=== PATIENT | female | born 1950 | race Caucasian/White ===

== ENCOUNTER 2019-07-13 10:01 | Inpatient (IN) | payer MEDICARE ==
[~2019-07-13] VITALS: Ht 165.1 cm; Wt 64.9 kg
[2019-07-13] MEDS ORDERED: SODIUM CHLORIDE 0.9% 1,000 ML IV ONE (10:26)
[2019-07-13] MEDS ORDERED: ONDANSETRON HCL 4MG/2ML INJ IV STA (10:26)
[2019-07-13 11:51] LABS: HEMATOCRIT. 39.9 % (36.0-48.0); HEMOGLOBIN. 13.8 g/dL (12.0-16.0); MEAN CORPUSCULAR HEMOGLOBIN 32.6 pg (28.0-32.0); MEAN CORPUSCULAR VOLUME 94.7 fL (81.0-99.0); MEAN PLATELET VOLUME 7.5 fl (7.4-10.4); PLATELET 446 x1000/uL (130-400); RED BLOOD CELL COUNT 4.22 mill/uL (4.2-5.4); RED CELL DISTRIBUTION WIDTH 14.8 % (11.6-14.6)
[2019-07-13 11:53] LABS: CHLORIDE 100 mEq/L (98-107)
[2019-07-13 12:01] LABS: PROTHROMBIN TIME 10.5 sec (9.6-11.0)
[2019-07-13 12:33] LABS: PLATELET ESTIMATE INCREASED
[2019-07-13] MEDS ORDERED: ONDANSETRON 4MG ODT PO ONE (12:45)
[2019-07-13] MEDS ORDERED: ERYTHROMYCIN ETHYLSUCCINATE 200MG/5ML 100ML PO ONE (13:00)
[2019-07-13] MEDS ORDERED: ERYTHROMYCIN 250MG TABLET PO NR (13:15)
[2019-07-13] MEDS ORDERED: DOCUSATE SODIUM 100MG CAPSULE PO PRN (13:30)
[2019-07-13] MEDS ORDERED: HYDRALAZINE 20MG/ML VIAL IV PRN (13:30)
[2019-07-13] MEDS ORDERED: ONDANSETRON HCL 4MG/2ML INJ IV PRN (13:30)
[2019-07-13] MEDS ORDERED: MAGNESIUM/ALUMINUM HYDROXIDE/SIMETHICONE 30ML UDC PO PRN (13:30)
[2019-07-13] MEDS ORDERED: HYDROCODONE/ACETAMINOPHEN 10/325MG TABLET PO PRN (13:30)
[2019-07-13] MEDS ORDERED: LORAZEPAM 2MG/ML CPJ IV PRN (13:30)
[2019-07-13] MEDS ORDERED: IPRATROPIUM/ALBUTEROL 0.5-3(2.5)MG/3ML NEB HHN PRN (13:30)
[2019-07-13] MEDS ORDERED: NA PHOS,M-B/NA PHOS,DI-BA ENEMA 118ML PR PRN (13:30)
[2019-07-13] MEDS ORDERED: ENOXAPARIN 40MG/0.4ML SYR SUBCUT SCH ×2 (13:30→16:00)
[2019-07-13] MEDS ORDERED: CLONIDINE 0.1MG TABLET PO PRN (13:30)
[2019-07-13] MEDS ORDERED: GUAIFENESIN 200MG/10ML SUGAR FREE UDC PO PRN (13:30)
[2019-07-13] MEDS ORDERED: MORPHINE SULFATE 2 MG/ML CPJ (NOT FOR IM USE) IV PRN (13:30)
[2019-07-13] MEDS ORDERED: DIPHENHYDRAMINE 50MG/ML VIAL IV PRN (13:30)
[2019-07-13] MEDS: DEXT 5%/0.45% NACL 1000ML 1,000 ML IV SCH ×2 (14:48→19:04)
[2019-07-13 15:50] VITALS: BP 136/57
[2019-07-13 16:00] VITALS: BP 136/57
[2019-07-13] MEDS ORDERED: MERC50TA MT (17:03)
[2019-07-13] MEDS ORDERED: ZOLP10TA2 MT (17:08)
[2019-07-13] MEDS ORDERED: ONDA4TAB5 MT (17:19)
[2019-07-13] MEDS ORDERED: CALC-1042 PO (17:19)
[2019-07-13] MEDS ORDERED: AMLO5TAB4 MT (17:19)
[2019-07-13] MEDS ORDERED: LISI40TA4 MT (17:19)
[2019-07-13] MEDS ORDERED: LANS30CA52 MT (17:19)
[2019-07-13] MEDS ORDERED: LEVO100T MT (17:19)
[2019-07-13] MEDS ORDERED: ESTRPATC TD (17:19)
[2019-07-13] MEDS ORDERED: VITA0.4T17 MT (17:19)
[2019-07-13] MEDS ORDERED: VALE150C PO (17:19)
[2019-07-13] MEDS ORDERED: ERYT250C68 MT (17:19)
[2019-07-13] MEDS ORDERED: MAGN400C MT (17:19)
[2019-07-13 18:15] LABS: CREATINE KINASE 144 IU/L (26-192); CREATINE KINASE MB FRACTION 1.8 ng/mL (0.5-3.6)
[2019-07-13] MEDS ORDERED: ZOLPIDEM TARTRATE 5MG TABLET PO PRN (18:45)
[2019-07-13] MEDS: OMEPRAZOLE 20MG CAPSULE EXTENDED RELEASE PO SCH ×2 (19:04→21:00)
[2019-07-13] MEDS: SODIUM CHLORIDE 0.9% INJ 3ML FLUSH IVF SCH ×2 (19:04→22:02)
[2019-07-13 20:00] VITALS: BP 143/59
[2019-07-13] MEDS ORDERED: MERCAPTOPURINE 50MG TABLET PO SCH (21:00)
[2019-07-13] MEDS: ACETAMINOPHEN 325MG TABLET PO PRN (22:02)
[2019-07-14 00:09] LABS: CREATINE KINASE 161 IU/L (26-192)
[2019-07-14 00:10] LABS: CREATINE KINASE MB FRACTION 1.7 ng/mL (0.5-3.6)
[2019-07-14 04:00] VITALS: BP 119/45
[2019-07-14] MEDS: ACETAMINOPHEN 325MG TABLET PO PRN (05:45)
[2019-07-14] MEDS: SODIUM CHLORIDE 0.9% INJ 3ML FLUSH IVF SCH (05:45)
[2019-07-14] MEDS: OMEPRAZOLE 20MG CAPSULE EXTENDED RELEASE PO SCH (06:26)
[2019-07-14 07:01] LABS: HEMATOCRIT. 34.3 % (36.0-48.0); HEMOGLOBIN. 11.8 g/dL (12.0-16.0); MEAN CORPUSCULAR HEMOGLOBIN 32.7 pg (28.0-32.0); MEAN CORPUSCULAR VOLUME 94.9 fL (81.0-99.0); MEAN PLATELET VOLUME 7.9 fl (7.4-10.4); PLATELET 375 x1000/uL (130-400); RED BLOOD CELL COUNT 3.62 mill/uL (4.2-5.4); RED CELL DISTRIBUTION WIDTH 14.8 % (11.6-14.6)
[2019-07-14 07:36] LABS: CHLORIDE 107 mEq/L (98-107)
[2019-07-14 08:00] VITALS: BP 125/49
[2019-07-14] MEDS ORDERED: POTASSIUM CHLORIDE 20MEQ TABLET SR PO SCH (09:15)
[2019-07-14 11:21] VITALS: BP 125/49
[2019-07-14 12:00] VITALS: BP 157/61
[2019-07-14 17:32] LABS: PLATELET ESTIMATE NORMAL
== END 2019-07-14 13:28 | disposition home or self-care (01) | DRG 641 ==
LOC: ER 10:01 → 6WST 13:13 → ENRESERV 14:20
PROVIDERS: ADMIT Internal Medicine; ATTEND Internal Medicine
DX: E86.0 Dehydration (principal); K50.90 Crohn's disease, unspecified, without complications; E87.1 Hypo-osmolality and hyponatremia; D72.825 Bandemia; E03.9 Hypothyroidism, unspecified; I10 Essential (primary) hypertension; N20.0 Calculus of kidney; Z90.49 Acquired absence of other specified parts of digestive tract; Z90.710 Acquired absence of both cervix and uterus; Z93.3 Colostomy status; Z88.8 Allergy status to other drugs, medicaments and biological substances
CPT/HCPCS: 36415; 74176; 82550; 82553; 84484; 96361; 96374; 99285; J2060; J2405; J7030; Q0162

== ENCOUNTER 2021-06-10 16:55 | Inpatient (IN) | payer MEDICARE ==
[~2021-06-10] VITALS: Ht 165.1 cm; Wt 88.5 kg
[~2021-06-10 16:55] MED LIST: AMLO5TAB4 MT; CALC-1042 PO; ESTRPATC TD; LANS30CA52 MT; LEVO100T MT; LISI40TA13 MT; MAGN400C MT; MERC50TA MT; ONDA4TAB5 MT; VALE150C PO; VITA0.4T17 MT; ZOLP10TA2 MT; [UNRECOGNIZED DRUG - CODE] MT
[2021-06-10] MEDS ORDERED: ONDANSETRON HCL 4MG/2ML INJ IV STA (17:04)
[2021-06-10] MEDS ORDERED: MORPHINE SULFATE 4 MG/ML CPJ (NOT FOR IM USE) IV STA (17:19)
[2021-06-10] MEDS ORDERED: SODIUM CHLORIDE 0.9% 1,000 ML IV ONE (17:45)
[2021-06-10 17:51] LABS: HEMATOCRIT. 39.4 % (36.0-48.0); HEMOGLOBIN. 13.5 g/dL (12.0-16.0); MEAN CORPUSCULAR VOLUME 90.2 fL (81.0-99.0); MEAN PLATELET VOLUME 7.8 fl (7.4-10.4); PLATELET 716 x1000/uL (130-400); RED BLOOD CELL COUNT 4.37 mill/uL (4.2-5.4); RED CELL DISTRIBUTION WIDTH 15.6 % (11.6-14.6)
[2021-06-10 17:56] LABS: CHLORIDE 101 mEq/L (98-107)
[2021-06-10 18:18] LABS: PLATELET ESTIMATE INCREASED
[2021-06-10 18:28] LABS: PARTIAL THROMBOPLASTIN TIME 27.5 sec (23.4-31.0); PROTHROMBIN TIME 10.8 sec (9.6-11.0)
[2021-06-10] MEDS ORDERED: CEFTRIAXONE 1 G PREMIX 50 ML IV ONE (21:45)
[2021-06-10] MEDS ORDERED: ONDANSETRON HCL 4MG/2ML INJ IV ONE (22:00)
[2021-06-11] MEDS: MORPHINE SULFATE 2 MG/ML CPJ (NOT FOR IM USE) IV PRN ×3 (06:11→16:16)
[2021-06-11] MEDS: ONDANSETRON HCL 4MG/2ML INJ IV PRN ×3 (06:11→15:02)
[2021-06-11 06:20] VITALS: BP 122/51
[2021-06-11 08:00] VITALS: BP 143/57
[2021-06-11 08:49] LABS: CLARITY URINE CLEAR (CLEAR); COLOR URINE DK YELLOW (YELLOW); KETONES URINE 1+ (NEGATIVE); LEUKOCYTE ESTERASE URINE 1+ (NEGATIVE); NITRITE URINE NEGATIVE (NEGATIVE); OCCULT BLOOD URINE NEGATIVE (NEGATIVE); PH URINE 5.5 (4.5-8.0); PROTEIN URINE 1+ (NEGATIVE); SPECIFIC GRAVITY URINE 1.022 (1.005-1.030); UROBILINOGEN URINE 0.2 E.U./dL (0.2-1.0)
[2021-06-11 12:00] VITALS: BP 155/59
[2021-06-11] MEDS: METHYLPREDNISOLONE SOD SUCC 40 MG/ML VIAL IV SCH ×2 (13:38→21:54)
[2021-06-11] MEDS: PIPERACILLIN/TAZOBACTAM 3.375 G in DEXTROSE 5% WATER 50 ML IV SCH ×2 (13:39→21:54)
[2021-06-11] MEDS: DEXT 5%/0.45% NACL 1000ML 1,000 ML IV SCH (13:39)
[2021-06-11 16:00] VITALS: BP 123/60
[2021-06-11 20:00] VITALS: BP_SYST 106; BP_SYST 108; BP_DIAS 66; BP_DIAS 69
[2021-06-11 20:03] VITALS: BP 116/62
[2021-06-11] MEDS: FAMOTIDINE 20MG/2ML VIAL IV SCH (21:54)
[2021-06-11] MEDS ORDERED: NALOXONE HCL 0.4MG/ML VIAL IV PRN (23:15)
[2021-06-11] MEDS: ZOLPIDEM TARTRATE 5MG TABLET PO PRN (23:44)
[2021-06-12] VITALS (7 sets, daily range): BP systolic 124–166; BP diastolic 50–78
[2021-06-12] MEDS: LISINOPRIL 40MG TABLET PO SCH ×2 (00:07→08:15)
[2021-06-12] MEDS: AMLODIPINE 5MG TABLET PO SCH ×2 (00:07→08:15)
[2021-06-12] MEDS: LEVOTHYROXINE SODIUM 100MCG TABLET PO SCH (04:58)
[2021-06-12] MEDS: LANSOPRAZOLE 30MG DR CAPSULE NG SCH (04:58)
[2021-06-12] MEDS: PIPERACILLIN/TAZOBACTAM 3.375 G in DEXTROSE 5% WATER 50 ML IV SCH ×3 (05:28→20:50)
[2021-06-12] MEDS: METHYLPREDNISOLONE SOD SUCC 40 MG/ML VIAL IV SCH (05:28)
[2021-06-12 05:37] LABS: CHLORIDE 103 mEq/L (98-107)
[2021-06-12 05:39] LABS: BASOPHILS % 0.1 % (0.0-2.0); HEMOGLOBIN. 12.2 g/dL (12.0-16.0); LYMPHOCYTES % 9.1 % (20.0-50.0); MEAN CORPUSCULAR HEMOGLOBIN 31.3 pg (28.0-32.0); MEAN CORPUSCULAR VOLUME 89.8 fL (81.0-99.0); MONOCYTES % 3.4 % (2.0-8.0); NEUTROPHILS % 87.4 % (40.0-76.0); PLATELET 701 x1000/uL (130-400); RED BLOOD CELL COUNT 3.89 mill/uL (4.2-5.4); RED CELL DISTRIBUTION WIDTH 15.4 % (11.6-14.6)
[2021-06-12] MEDS: LACTOBACILLUS GG CAPSULE PO SCH (08:15)
[2021-06-12] MEDS: MERCAPTOPURINE 50MG TABLET PO SCH (08:15)
[2021-06-12] MEDS: FAMOTIDINE 20MG/2ML VIAL IV SCH ×2 (09:26→20:50)
[2021-06-12] MEDS: DEXT 5%/0.45% NACL 1000ML 1,000 ML IV SCH ×2 (09:26→16:48)
[2021-06-12] MEDS: ENOXAPARIN 40MG/0.4ML SYR SUBCUT SCH ×2 (12:00→15:03)
[2021-06-12] MEDS ORDERED: ACETAMINOPHEN 325MG TABLET PO PRN (16:15)
[2021-06-12] MEDS: VANCOMYCIN HCL 1000 MG/20 ML ORAL PO SCH ×2 (16:46→23:12)
[2021-06-12] MEDS ORDERED: VANCOMYCIN HCL 1 GM/VIAL PO SCH (18:00)
[2021-06-12] MEDS: ZOLPIDEM TARTRATE 5MG TABLET PO PRN (23:12)
[2021-06-13 04:00] VITALS: BP 154/52
[2021-06-13] MEDS: VANCOMYCIN HCL 1000 MG/20 ML ORAL PO SCH ×3 (06:27→19:49)
[2021-06-13] MEDS: DEXT 5%/0.45% NACL 1000ML 1,000 ML IV SCH ×2 (06:27→12:45)
[2021-06-13] MEDS: LANSOPRAZOLE 30MG DR CAPSULE NG SCH (06:27)
[2021-06-13] MEDS: LEVOTHYROXINE SODIUM 100MCG TABLET PO SCH (06:27)
[2021-06-13] MEDS: PIPERACILLIN/TAZOBACTAM 3.375 G in DEXTROSE 5% WATER 50 ML IV SCH (06:27)
[2021-06-13 08:00] VITALS: BP 154/76
[2021-06-13] MEDS: LACTOBACILLUS GG CAPSULE PO SCH (08:55)
[2021-06-13] MEDS: FAMOTIDINE 20MG/2ML VIAL IV SCH (08:55)
[2021-06-13] MEDS: AMLODIPINE 5MG TABLET PO SCH (08:56)
[2021-06-13] MEDS: LISINOPRIL 40MG TABLET PO SCH (08:56)
[2021-06-13] MEDS: MERCAPTOPURINE 50MG TABLET PO SCH (09:00)
[2021-06-13] MEDS ORDERED: VANC250C12 MT (10:53)
[2021-06-13] MEDS: ENOXAPARIN 40MG/0.4ML SYR SUBCUT SCH (12:00)
[2021-06-13] MEDS ORDERED: ERYTHROMYCIN EC 250MG TABLET PO NR (18:30)
[2021-06-13 18:44] VITALS: BP 141/62
[2021-06-13 20:00] VITALS: BP 141/62
[2021-06-14] MEDS ORDERED: LANSOPRAZOLE 30MG DR CAPSULE NG SCH (07:10)
[2021-06-14 19:08] LABS: OVA & PARASITE EXAM Final report (.)
== END 2021-06-13 20:30 | disposition home or self-care (01) | DRG 872 ==
LOC: ER 16:55 → MICUSO 22:41 → 8WST 06-11 05:00
PROVIDERS: ADMIT Internal Medicine; ATTEND Internal Medicine
DX: A41.9 Sepsis, unspecified organism (principal); K56.7 Ileus, unspecified; K50.90 Crohn's disease, unspecified, without complications; A04.72 Enterocolitis due to Clostridium difficile, not specified as recurrent; E03.9 Hypothyroidism, unspecified; Z20.822 Contact with and (suspected) exposure to COVID-19; E66.9 Obesity, unspecified; I10 Essential (primary) hypertension; Z90.49 Acquired absence of other specified parts of digestive tract; Z90.710 Acquired absence of both cervix and uterus; Z93.2 Ileostomy status; Z93.3 Colostomy status; Z91.048 Other nonmedicinal substance allergy status; Z79.2 Long term (current) use of antibiotics; Z79.899 Other long term (current) drug therapy; Z68.32 Body mass index [BMI] 32.0-32.9, adult; K52.9 Noninfective gastroenteritis and colitis, unspecified; K29.00 Acute gastritis without bleeding
CPT/HCPCS: 36415; 71045; 74018; 74176; 80048; 80053; 81003; 83036; 83880; 84484; 85025; 87015; 87045; 87177; 87209; 87426; 87427; 87449; 87493; 89055; 93005; 99285; C1893; J0696; J1650; J2270; J2405; J2543; J2920; J3370; J3490; J7030; J7060